=== PATIENT | female | born 2000 | race Caucasian/White ===

== ENCOUNTER 2019-02-19 19:55 | Emergency (ER) | payer OTHER ==
[~2019-02-19] VITALS: Ht 152.4 cm; Wt 56.7 kg
[2019-02-19 20:57] LABS: ALBUMIN 4.5 gm/dl (3.1-4.5); ALKALINE PHOSPHATASE 130 U/L (45-117); BUN 24 mg/dl (7-24); CHLORIDE 97 mmol/L (98-107); CREATININE 0.84 mg/dL (0.55-1.02); POTASSIUM 3.9 mmol/L (3.5-5.1); SGOT/AST 13 IU/L (3-35); SGPT/ALT 18 U/L (12-78); SODIUM 136 mmol/L (136-145); TOTAL PROTEIN 8.5 gm/dL (6.4-8.2)
[2019-02-19 21:45] LABS: URINE AMPHETAMINES < 1000 (1000ng/ml); URINE BARBITURATES < 200 (200ng/ml); URINE BENZODIAZEPINES < 200 (200ng/ml); URINE CANNABINOIDS (THC) < 50 (50ng/ml); URINE COCAINE < 300 (300ng/ml); URINE METHADONE < 300 (300ng/ml); URINE OPIATES > 300 (300ng/ml)
[2019-02-19 21:47] LABS: URINE PHENCYCLIDINE < 25 (25ng/ml)
[2019-02-19 22:05] LABS: LIPASE 175 U/L (73-393)
== END 2019-02-20 01:22 ==
LOC: ED 19:55
PROVIDERS: Emergency Medicine; Internal Medicine
DX: R11.2 Nausea with vomiting, unspecified (principal); Z88.1 Allergy status to other antibiotic agents; Z59.0 Homelessness